=== PATIENT | male | born 1975 | race Caucasian/White ===

== ENCOUNTER 2019-07-20 12:01 | Emergency (ER) | payer MEDICAID, OTHER ==
[~2019-07-20] VITALS: Ht 182.9 cm; Wt 127.0 kg
--- NOTE | 2019-07-20 12:16 | NUR ---
Dr Porras at the bedside for MSE.
--- NOTE | 2019-07-20 12:25 | NUR ---
PATIENT WAS MSE BY DR LAMBERT IN ROM 03A. PATIENT A & O X3
[2019-07-20] MEDS ORDERED: NEOMY/BACITRA/POLYMYXIN B OINT UD PACKET TP ONE ×2 (12:28→12:30)
[2019-07-20] MEDS ORDERED: CLONIDINE HCL 0.2 MG TABLET ONE (12:28)
[2019-07-20] MEDS ORDERED: CLONIDINE HCL 0.2 MG TABLET PO ONE (12:30)
[2019-07-20 12:45] VITALS: BP 148/98
--- NOTE | 2019-07-20 12:45 | NUR ---
Patient discharged to home in stable conditon. Written and verbal after care instructions given. Patient verbalizes understanding of instructions.
--- NOTE | 2019-07-20 12:45 | NUR ---
PATIENT LEFT ER DEPT NO C/O ANY CP. NO SOB. NORMAL STEADY GAIT.
== END 2019-07-20 12:47 | disposition home or self-care (01) ==
LOC: ER 12:01
DX: I83.029 Varicose veins of left lower extremity with ulcer of unspecified site (principal); J45.909 Unspecified asthma, uncomplicated; Z88.2 Allergy status to sulfonamides
CPT/HCPCS: A4217; A4663

== ENCOUNTER 2019-09-27 12:53 | Emergency (ER) | payer OTHER ==
[~2019-09-27] VITALS: Ht 182.9 cm; Wt 145.6 kg
--- NOTE | 2019-09-27 13:15 | NUR ---
Dr Oleary at the bedside for MSE.
--- NOTE | 2019-09-27 13:30 | NUR ---
Patient discharged to home in stable conditon. Written and verbal after care instructions given. Patient verbalizes understanding of instructions. Patient ambulated with stable gait.
[2019-09-27 13:31] VITALS: BP 145/96
== END 2019-09-27 13:32 | disposition home or self-care (01) ==
LOC: ER 12:53
DX: I87.2 Venous insufficiency (chronic) (peripheral) (principal); R60.9 Edema, unspecified; L08.9 Local infection of the skin and subcutaneous tissue, unspecified; J45.909 Unspecified asthma, uncomplicated; Z88.2 Allergy status to sulfonamides
CPT/HCPCS: A4663